=== PATIENT | male | born 1975 | race Caucasian/White ===

== ENCOUNTER 2023-03-23 15:21 | Outpatient (OUT) | payer OTHER, SELFPAY ==
--- NOTE | 2023-03-23 | CONS_ITS ---
PROCEDURE DATE: ??03/23/2023 PROCEDURE:? Trigger point injection right gastrocnemius muscle, lateral head, performed in the office. PREOPERATIVE DIAGNOSIS:? Pain secondary to Achilles tear? - Code 586.011A SOLUTION USED FOR INJECTION:? 2 mL of Marcaine 0.25%, 2 mL of lidocaine 2% and Kenalog 10 mg and 2 mL used for the injection at the site. IMMEDIATE COMPLICATIONS:? None. PROCEDURE:? After informed consent was obtained from the patient, placed in the semi-prone position, exposing the lateral head of the right gastrocnemius muscle.? Prepped the area with alcohol.? 25 gauge 1 ?? needle was inserted into the lateral head of the right gastrocnemius muscle.? Needle tip advanced until there was a twitch response, at which point we injected 2 mL of solution.? No indication of intravascular or intraneural needle tip placement or injection.? Patient reports a marked reduction in pain symptoms post procedurally.? WILMAD
== END 2023-03-23 15:22 | disposition home or self-care (01) ==
PROVIDERS: PCP Family Medicine; Visit Provider Anesthesiology Pain Medicine
DX: S86.011A Strain of right Achilles tendon, initial encounter (principal)
CPT/HCPCS: 20552

== ENCOUNTER 2023-06-08 14:32 | Outpatient (OUT) | payer OTHER, SELFPAY ==
--- NOTE | 2023-06-08 | CONS_ITS ---
CONSULTATION DATE: 06/08/2023 HISTORY: Patient returns today complaining of pain in his right ankle. Reports the pain as being 2-5/10 pain. Burning, sharp in character with a deep aching component. He complains it ?jolts? in the calf and ankle area. CURRENT MEDICATION: Include Motrin 800 mg b.i.d. Tylenol 1000 mg daily and baclofen 10 mg 1-2 up to b.i.d. He reports he has moderate reduction in pain symptoms with the use of baclofen. EXAMINATION: Notable for patient having significant myofascial dysfunction involving the left gastrocnemius muscle and concomitantly the left Achilles. He has undergone a trigger point injection in the left gastrocnemius muscle, just as it transitions from the Achilles and reports the patient had 80% reduction in pain symptoms, lasting for at least four hours, with recurrence of pain back to his baseline. IMPRESSION: For his work related injury, diagnosis code S86.011A, which is Achilles tendon tear, right side. RECOMMENDATIONS: Based upon his response thus far, I have recommended he consider increasing his baclofen 10 mg pills 1-2 up to t.i.d. as tolerated, as well as to consider botulinum toxin infiltration of the right Achilles under fluoroscopic guidance. I have gone over the details of the procedure with the patient. We will use a nerve stimulator to confirm needle tip placement, while injecting botulinum toxin type A. We plan on injecting approximately 300 units of botulinum toxin type A into the area. All his questions were answered. He agrees to proceed. As part of providing excellent, safe, comprehensive care, the following was completed at our patient's visit: 1. A medication reconciliation and review to ensure accurate knowledge of current/active medications, including asking our patients to inform us about any [id number] medications or herbal remedies/nutritional supplements/alternative remedies. 2. A review to specifically ensure our patients have had annual screening for: elevated body mass index (BMI, see intake chart for exact total), tobacco use, screening for depression, and screening for unhealthy alcohol use. When screening is concerning, patients are provided with education and the specific recommendation to discuss the concerning health issue and treatment options with their primary care provider. IFEANYI
== END 2023-06-08 14:33 | disposition home or self-care (01) ==
PROVIDERS: PCP Family Medicine; Visit Provider Anesthesiology Pain Medicine
DX: M25.571 Pain in right ankle and joints of right foot (principal); S86.011A Strain of right Achilles tendon, initial encounter
CPT/HCPCS: G0463